=== PATIENT | male | born 1955 | race African-American/Black ===

== ENCOUNTER 2018-01-22 14:58 | Emergency (ER) | payer MEDICAID ==
[~2018-01-22] VITALS: Ht 172.7 cm; Wt 80.0 kg
[~2018-01-22 14:58] MED LIST: AMLO10TA80 PO; ASPI-1160 PO; CALC667C PO; CLOP75TA16 PO
[2018-01-22 15:05] VITALS: BP 134/80
[2018-01-22] MEDS ORDERED: ASPIRIN 81MG TABLET PO STA (15:21)
[2018-01-22 16:19] LABS: BASOPHILS % 1.1 % (0.0-2.0); EOSINOPHILS % 1.6 % (0.0-5.0); HEMATOCRIT. 25.9 % (42.0-52.0); HEMOGLOBIN. 9.1 g/dL (14.0-18.0); LYMPHOCYTES % 20.2 % (20.0-50.0); MEAN PLATELET VOLUME 6.4 fl (7.4-10.4); MONOCYTES % 6.7 % (2.0-8.0); NEUTROPHILS % 70.4 % (40.0-76.0); PLATELET 271 x1000/uL (130-400); RED BLOOD CELL COUNT 2.52 mill/uL (4.7-6.1); RED CELL DISTRIBUTION WIDTH 15.7 % (11.6-14.6)
[2018-01-22 16:27] LABS: CHLORIDE 97 mEq/L (98-107)
== END 2018-01-22 22:18 | disposition left against medical advice (07) ==
LOC: ER 15:26
DX: R20.0 Anesthesia of skin (principal); M79.602 Pain in left arm; E11.9 Type 2 diabetes mellitus without complications; I12.9 Hypertensive chronic kidney disease with stage 1 through stage 4 chronic kidney disease, or unspecified chronic kidney disease; N18.9 Chronic kidney disease, unspecified; Z79.82 Long term (current) use of aspirin
CPT/HCPCS: 36415; 80053; 84484; 85025; 93005; 99285